=== PATIENT | female | born 1995 ===

== ENCOUNTER 2021-08-18 13:34 | Outpatient (CLI) | payer OTHER | END 2021-08-18 14:28 | disposition home or self-care (01) | LOC: PRENATAL 13:34 | PROVIDERS: ATTEND Obstetrics & Gynecology Maternal & Fetal Medicine | DX: O35.0XX1 Maternal care for (suspected) central nervous system malformation in fetus, fetus 1 (principal); O35.3XX1 Maternal care for (suspected) damage to fetus from viral disease in mother, fetus 1; O98.512 Other viral diseases complicating pregnancy, second trimester; Z36.89 Encounter for other specified antenatal screening; Z3A.24 24 weeks gestation of pregnancy ==

== ENCOUNTER 2022-06-29 14:32 | Emergency (ER) | payer OTHER ==
[~2022-06-29] VITALS: Ht 162.6 cm; Wt 49.9 kg
[2022-06-29] MEDS ORDERED: DUI500 PO (17:28)
== END 2022-06-29 17:31 | disposition home or self-care (01) ==
LOC: ER 14:32
DX: N61.0 Mastitis without abscess (principal); Z88.0 Allergy status to penicillin; Z88.8 Allergy status to other drugs, medicaments and biological substances